=== PATIENT | female | born 1985 | race Caucasian/White ===

== ENCOUNTER 2023-05-01 11:29 | Emergency (ER) | payer MEDICAID, SELFPAY ==
[2023-05-01 11:35] VITALS: BP 116/66; PULSE 62; RESP 14; TEMP 36.9; O2SAT 97; BMI 33.8
--- NOTE | 2023-05-01 11:48 | ED_ITS ---
HPI - Ear Problem General Chief complaint: Ear Stated complaint: EAR PAIN Time Seen by Provider: 05/01/23 11:34 Mode of arrival: walk-in Limitations: no limitations History of Present Illness HPI Narrative: 37-year-old female presents for bilateral ear pain that she has had for 2 weeks. She has been having dizziness and felt like she was going to pass out while she was driving her car yesterday. She pulled over and did not pass out. No chest pain or cough or shortness of breath. No vomiting or diarrhea. She has pressure in her head that is continuous and moderate. Related Data Home Medications Medication Instructions Recorded Confirmed cyclobenzaprine 10 mg tablet 10 mg PO Q8H 05/01/23 05/01/23 duloxetine 60 mg capsule,delayed 60 mg PO DAILY 05/01/23 05/01/23 release hydroxychloroquine 200 mg tablet 200 mg PO BIDWM 05/01/23 05/01/23 leflunomide 20 mg tablet 20 mg PO DAILY 05/01/23 05/01/23 Previous Rx's Medication Instructions Recorded amoxicillin 500 mg capsule 500 mg PO TID 10 days #30 caps 05/01/23 loratadine 5 mg-pseudoephedrine ER 1 tab PO Q12H PRN nasal congestion 05/01/23 120 mg tablet,extended #20 tabs release,12hr (Claritin-D 12 Hour) Review of Systems ROS Narrative A ten point review of systems is negative except as noted above. PFSH PFSH Social History Smoking status: Former smoker Exam Narrative Exam Narrative: Nurses note and vital signs reviewed and patient is not hypoxic. General: The patient appears well and in no apparent distress. Patient is resting comfortably on cart. Skin: Warm, dry, no pallor noted. There is no rash noted. Head: Normocephalic, atraumatic Eye: Normal conjunctiva, no drainage Ears, Nose, Mouth, and Throat: oral mucosa is moist. Nares patent. Both TMs and external canals are normal. No cerumen present. Cardiovascular: Regular Rate and Rhythm Respiratory: Patient is in no distress, no accessory muscle use, lungs are clear to auscultation, no wheezing, rales or rhonchi Back: non-tender GI: Soft and nontender Musculoskeletal: The patient has no evidence of calf tenderness, no pitting edema, symmetrical pulses noted bilaterally Neurological: A&O, normal speech Psychiatric: Cooperative Constitutional Vital Signs, click to edit/add: Last Vital Signs Temp 98.4 F 05/01/23 11:35 Pulse 62 05/01/23 11:35 Resp 14 05/01/23 11:35 BP 116/66 05/01/23 11:35 Pulse Ox 97 05/01/23 11:35 O2 Del Method Room Air 05/01/23 11:35 Course Vital Signs Vital signs: Vital Signs Temperature 98.4 F 05/01/23 11:35 Pulse Rate 62 05/01/23 11:35 Respiratory Rate 14 05/01/23 11:35 Blood Pressure 116/66 05/01/23 11:35 Pulse Oximetry 97 05/01/23 11:35 Oxygen Delivery Method Room Air 05/01/23 11:35 Temperature 98.4 F 05/01/23 11:35 Pulse Rate 62 05/01/23 11:35 Respiratory Rate 14 05/01/23 11:35 Blood Pressure 116/66 05/01/23 11:35 Pulse Oximetry 97 05/01/23 11:35 Oxygen Delivery Method Room Air 05/01/23 11:35 Medical Decision Making MDM Narrative Medical decision making narrative: Her workup here is negative. My clinical impression is that she has sinusitis. She has had this for 2 weeks. Treatment diagnosis and follow-up were discussed with the patient. Differential Diagnosis Differential Diagnosis: Otitis media, otitis externa, sinusitis. Lab Data Lab results reviewed: Yes I reviewed the patient's lab results ECG Data Attestation: I personally reviewed and interpreted this ECG as follows: (EKG on my interpretation shows normal sinus rhythm with a rate of 73) Discharge Plan Discharge Chief Complaint: Ear Clinical Impression: Sinusitis Patient Disposition: Home, Self-Care Time of Disposition Decision: 12:25 Condition: Good Mode of Transportation: Private Vehicle Prescriptions / Home Meds: New amoxicillin 500 mg capsule 500 mg PO TID 10 Days Qty: 30 0RF Claritin-D 12 Hour 5-120 mg tablet extended release 12 hr 1 tab PO Q12H PRN (Reason: nasal congestion) Qty: 20 0RF No Action cyclobenzaprine 10 mg tablet 10 mg PO Q8H duloxetine 60 mg capsule,delayed release(DR/EC) 60 mg PO DAILY hydroxychloroquine 200 mg tablet 200 mg PO BIDWM leflunomide 20 mg tablet 20 mg PO DAILY Instructions: Sinusitis (ED) Stand Alone Forms: Portal Instructions Referrals: [facility] [Primary Care Provider] - 1 week
--- NOTE | 2023-05-01 11:48 | ECG_ITS ---
[facility] Test Date: 2023-05-01 Pat Name: CHRISTINA BASHIR Department: Room: - Gender: Female [employer]: : [id number] Requested By: [id number] Order Number: [id number] Reading MD: MIRNA GEORGE Measurements Intervals [place] Rate: 73 P: 52 NM: 114 QRS: 48 QRSD: 70 T: 48 QT: 372 QTc: 399 Interpretive Statements 1100 Sinus rhythm 2210 Short NM interval 8102 Low QRS voltage in chest leads 9150 abnormal ECG Electronically Signed On 05-02-2023 7:37:20 EST by MIRNA GEORGE
[2023-05-01 12:03] LABS: Basophils Percent Auto 0.7 % (0.2-2.0); Eosinophils Absolute Auto 0.1 10^3/uL (0.0-0.7); Eosinophils Percent Auto 1.6 % (0.9-7.0); Hemoglobin 12.6 g/dL (12.0-16.0); Immature Granulocytes Abs Auto 0.01 10^3/uL (0.00-0.03); Immature Granulocytes Pct Auto 0.2 % (0.0-0.5); Lymphocytes Absolute Auto 2.4 10^3/uL (1.2-3.8); Lymphocytes Percent Auto 40.9 % (20.5-60.0); Mean Corpuscular HGB Conc 33.2 g/dL (29.9-35.2); Mean Corpuscular Hemoglobin 31.2 pg (26.7-34.0); Mean Corpuscular Volume 94.1 fL (81.0-99.0); Mean Platelet Volume 9.7 fL (9.5-13.5); Monocytes Absolute Auto 0.4 10^3/uL (0.3-0.8); Monocytes Percent Auto 6.4 % (1.7-12.0); Neutrophils Absolute Auto 2.9 10^3/uL (1.4-6.5); Neutrophils Percent Auto 50.2 % (43.0-75.0); Platelet Count 271 10^3/uL (150-450); Red Blood Count 4.04 10^6/uL (4.20-5.40); Red Cell Distribution Width 11.7 % (11.0-15.0); White Blood Count 5.8 10^3/uL (4.0-11.0)
[2023-05-01 12:13] LABS: Anion Gap 12.4; BUN Creatinine Ratio 17.2; Calcium 8.8 mg/dL (8.5-10.1); Carbon Dioxide 29.3 mmol/L (21.0-32.0); Chloride 105 mmol/L (98-107); Estimated GFR (African America >60 (>=60); Estimated GFR (Non-African Ame >60 (>=60); Glucose 94 mg/dL (74-106); Potassium 4.7 mmol/L (3.5-5.1); Sodium 142 mmol/L (136-145)
== END 2023-05-01 12:35 | disposition home or self-care (01) ==
PROVIDERS: Emergency Provider Emergency Medicine
DX: J32.9 Chronic sinusitis, unspecified (principal); Z87.891 Personal history of nicotine dependence
CPT/HCPCS: 36415; 80048; 85025; 93005; 99284